=== PATIENT | male | born 1975 | race Caucasian/White ===

== ENCOUNTER 2022-08-25 12:28 | Inpatient (IN) | payer OTHER ==
[~2022-08-25] VITALS: Ht 180.3 cm; Wt 95.7 kg
[2022-08-25 12:30] VITALS: BP_SYST 118
[2022-08-25] MEDS ORDERED: MORPHINE 4 MG INJ. 4 MG/ML VIAL IVP ONE (12:45)
[2022-08-25] MEDS ORDERED: ONDANSETRON HCL 4 MG/2 ML VIAL IVP ONE ×2 (12:45→20:30)
[2022-08-25] MEDS ORDERED: NACL 0.9% 1,000 ML IV ONE (12:45)
[2022-08-25 13:12] LABS: EOSINOPHILS # (AUTO) 0.2 K/uL (0.0-0.4); HEMATOCRIT 36.4 % (36-54); HEMOGLOBIN 12.3 g/dL (14.0-18.0); LYMPHOCYTES % (AUTO) 20.1 % (20.5-51.5); MEAN CORPUSCULAR HEMOGLOBIN 31 pg (27-31); MEAN CORPUSCULAR HGB CONC 34 % (32-36); MEAN CORPUSCULAR VOLUME 90 fL (79.0-98.0); MONOCYTES # (AUTO) 0.4 K/uL (0.0-1.0); MONOCYTES % (AUTO) 7.9 % (1.7-9.3); NEUTROPHILS # (AUTO) 3.5 K/uL (1.8-7.7); PLATELET COUNT (AUTO) 86 K/uL (130-430); RED BLOOD CELL COUNT(AUTO) 4.04 MIL/uL (4.2-6.2); RED CELL DISTRIBUTION WIDTH 14.3 % (9.0-15.0); WHITE BLOOD COUNT (AUTO) 5.1 K/uL (4.8-10.8)
[2022-08-25 13:13] LABS: BILIRUBIN,URINE NEGATIVE (NEGATIVE); COLOR,URINE YELLOW (YELLOW); GLUCOSE,URINE 3+ (NEGATIVE); KETONES,URINE NEGATIVE (NEGATIVE); LEUKOCYTE ESTERASE ,URINE NEGATIVE (NEGATIVE); NITRITE, URINE NEGATIVE (NEGATIVE); PROTEIN URINE NEGATIVE (NEGATIVE); UROBILINOGEN,URINE 0.2 (0.2-1.0)
[2022-08-25 13:14] LABS: BLOOD, URINE TRACE (NEGATIVE); CLARITY/URINE SLIGHTLY HAZY (CLEAR)
[2022-08-25 13:20] LABS: ALBUMIN 3.4 g/dL (3.4-4.8); CALCIUM 8.6 mg/dL (8.4-11.0); CREATININE 2.13 mg/dL (0.55-1.30); TOTAL BILIRUBIN 0.4 mg/dL (0.0-1.0)
[2022-08-25 13:21] LABS: BACTERIA,URINE FEW /HPF (None Seen); RBC,URINE 0-3 /HPF (0-3); WBC,URINE 0-3 /HPF (0-3); YEAST,URINE Moderate /HPF (None Seen)
[2022-08-25] MEDS ORDERED: INSULIN REGULAR, HUMAN 10 UNITS/0.1 ML, 3 ML VIAL IVP ONE (17:00)
[2022-08-25] MEDS ORDERED: FLUCONAZOLE 200 mg/ NS 100 ML IV ONE (17:00)
[2022-08-25] MEDS ORDERED: DIPHENHYDRAMINE INJ 50 MG/ML VIAL IVP ONE (17:30)
[2022-08-25] MEDS ORDERED: METOCLOPRAMIDE HCL 10 MG/2 ML VIAL IVP ONE (17:30)
[2022-08-25] MEDS ORDERED: KETOROLAC TROMETHAMINE 15 MG VIAL IVP ONE (17:30)
[2022-08-25] MEDS ORDERED: NEU300 PO (18:06)
[2022-08-25] MEDS ORDERED: LORA-258 PO (18:06)
[2022-08-25] MEDS ORDERED: INSU100V SUBCUT (18:06)
[2022-08-25] MEDS ORDERED: LISI20TA30 PO (18:06)
[2022-08-25] MEDS ORDERED: PROP10TA10 PO (18:06)
[2022-08-25] MEDS ORDERED: QUET25TA36 PO (18:06)
[2022-08-25] MEDS ORDERED: LIP20 PO (18:06)
[2022-08-25] MEDS ORDERED: FLUO40CA49 PO (18:06)
[2022-08-25] MEDS ORDERED: MORPHINE 2 MG/ML INJ. SYRINGE IVP ONE (20:30)
[2022-08-25] MEDS: 0.45% NACL 1,000 ML IV SCH (20:44)
[2022-08-25 21:14] VITALS: BP_SYST 111
[2022-08-25] MEDS: INSULIN LISPRO SLIDING SCALE 100 UNITS/ML, 3 ML VIAL (humaLOG) SUBCUT SCH (23:30)
[2022-08-26] MEDS ORDERED: ONDANSETRON HCL 4 MG/2 ML VIAL IVP PRN ×2 (00:15→12:45)
[2022-08-26 00:30] VITALS: BP_SYST 93
[2022-08-26] MEDS: LORazepam 1 MG TABLET PO SCH ×3 (00:35→22:40)
[2022-08-26] MEDS: MORPHINE 2 MG/ML INJ. SYRINGE IVP PRN ×4 (00:47→20:15)
[2022-08-26] MEDS: INSULIN LISPRO SLIDING SCALE 100 UNITS/ML, 3 ML VIAL (humaLOG) SUBCUT SCH ×4 (06:20→22:34)
[2022-08-26 06:21] VITALS: BP_SYST 111
[2022-08-26] MEDS ORDERED: GLUCOSE (DEXTROSE) ORAL GEL -Adults PO PRN (06:30)
[2022-08-26] MEDS ORDERED: DEXTROSE 50%-WATER 50 ML DISP.SYRIN IVP PRN (06:30)
[2022-08-26] MEDS ORDERED: D5W 1,000 ML IV PRN (06:30)
[2022-08-26] MEDS: 0.45% NACL 1,000 ML IV SCH ×2 (10:32→22:40)
[2022-08-26] MEDS ORDERED: HYDROcodone/ACETAMIN 5-325 MG TAB (NORCO/ VICODIN) PO PRN (12:45)
[2022-08-26] MEDS ORDERED: LORazepam 2 MG/ML VIAL IVP PRN (12:45)
[2022-08-26] MEDS ORDERED: NALOXONE HCL 0.4 MG/ML AMP (NARCAN) IVP PRN ×2 (12:45)
[2022-08-26] MEDS ORDERED: ACETAMINOPHEN 325 MG TABLET PO PRN ×2 (12:45→13:00)
[2022-08-26] MEDS ORDERED: FLUoxetine HCL 20 MG CAPSULE (PROzac) PO ONE (13:15)
[2022-08-26] MEDS: GABAPENTIN 300 MG CAPSULE PO SCH ×2 (14:59→22:22)
[2022-08-26] MEDS: HYDROcodone/ACETAMIN 10-325 MG TAB PO PRN (15:29)
[2022-08-26 20:11] VITALS: BP_SYST 120
[2022-08-26] MEDS: PROPRANOLOL HCL 10 MG TABLET (INDERAL) PO SCH (22:25)
[2022-08-26] MEDS: lisinopriL 20 MG TABLET PO SCH (22:26)
[2022-08-26] MEDS: QUEtiapine FUMARATE 25 MG TABLET PO SCH (22:26)
[2022-08-26] MEDS: ATORVASTATIN 20 MG TABLET PO SCH (22:38)
[2022-08-27] MEDS: HYDROcodone/ACETAMIN 10-325 MG TAB PO PRN ×3 (00:08→23:12)
[2022-08-27 01:05] VITALS: BP_SYST 115
[2022-08-27 04:56] VITALS: BP_SYST 114
[2022-08-27] MEDS: MORPHINE 2 MG/ML INJ. SYRINGE IVP PRN ×3 (05:11→19:43)
[2022-08-27] MEDS: INSULIN LISPRO SLIDING SCALE 100 UNITS/ML, 3 ML VIAL (humaLOG) SUBCUT SCH ×4 (06:44→23:16)
[2022-08-27 07:27] LABS: EOSINOPHILS # (AUTO) 0.2 K/uL (0.0-0.4); EOSINOPHILS % (AUTO) 3.6 % (0.0-4.0); HEMATOCRIT 35.2 % (36-54); LYMPHOCYTES # (AUTO) 1.3 K/uL (1.0-5.5); LYMPHOCYTES % (AUTO) 32.2 % (20.5-51.5); MEAN CORPUSCULAR HEMOGLOBIN 31 pg (27-31); MEAN CORPUSCULAR HGB CONC 34 % (32-36); MEAN CORPUSCULAR VOLUME 90 fL (79.0-98.0); MONOCYTES # (AUTO) 0.4 K/uL (0.0-1.0); MONOCYTES % (AUTO) 9.9 % (1.7-9.3); NEUTROPHILS # (AUTO) 2.2 K/uL (1.8-7.7); NEUTROPHILS % (AUTO) 53.3 % (40.0-70.0); PLATELET COUNT (AUTO) 59 K/uL (130-430); RED CELL DISTRIBUTION WIDTH 14.2 % (9.0-15.0); WHITE BLOOD COUNT (AUTO) 4.2 K/uL (4.8-10.8)
[2022-08-27 08:00] VITALS: BP_SYST 109
[2022-08-27 08:06] LABS: ALBUMIN 3.1 g/dL (3.4-4.8); CALCIUM 8.5 mg/dL (8.4-11.0); CREATININE 1.6 mg/dL (0.55-1.30); PHOSPHORUS 3.3 mg/dL (2.7-4.5); TOTAL BILIRUBIN 0.7 mg/dL (0.0-1.0)
[2022-08-27] MEDS: QUEtiapine FUMARATE 25 MG TABLET PO SCH ×2 (09:12→21:54)
[2022-08-27] MEDS: FLUoxetine HCL 20 MG CAPSULE (PROzac) PO SCH (09:12)
[2022-08-27] MEDS: PROPRANOLOL HCL 10 MG TABLET (INDERAL) PO SCH ×2 (09:21→21:54)
[2022-08-27] MEDS: GABAPENTIN 300 MG CAPSULE PO SCH ×3 (09:24→21:54)
[2022-08-27] MEDS: LORazepam 1 MG TABLET PO SCH ×2 (09:24→21:53)
[2022-08-27] MEDS: 0.45% NACL 1,000 ML IV SCH ×2 (09:26→22:02)
[2022-08-27 12:00] VITALS: BP_SYST 108
[2022-08-27] MEDS ORDERED: FLUCONAZOLE 200 MG TABLET (DIFLUCAN) PO ONE (14:00)
[2022-08-27 16:00] VITALS: BP_SYST 116
[2022-08-27 20:00] VITALS: BP_SYST 103
[2022-08-27] MEDS: ATORVASTATIN 20 MG TABLET PO SCH (21:54)
[2022-08-27] MEDS: lisinopriL 20 MG TABLET PO SCH (21:55)
[2022-08-28 03:26] VITALS: BP_SYST 89
[2022-08-28] MEDS: HYDROcodone/ACETAMIN 10-325 MG TAB PO PRN (03:26)
[2022-08-28 06:18] LABS: BASOPHILS # (AUTO) 0.1 K/uL (0.0-0.2); BASOPHILS % (AUTO) 1.3 % (0.0-2.0); EOSINOPHILS # (AUTO) 0.3 K/uL (0.0-0.4); EOSINOPHILS % (AUTO) 3.6 % (0.0-4.0); HEMATOCRIT 35.2 % (36-54); HEMOGLOBIN 11.8 g/dL (14.0-18.0); LYMPHOCYTES # (AUTO) 2.7 K/uL (1.0-5.5); LYMPHOCYTES % (AUTO) 34.2 % (20.5-51.5); MEAN CORPUSCULAR HEMOGLOBIN 31 pg (27-31); MEAN CORPUSCULAR HGB CONC 34 % (32-36); MEAN CORPUSCULAR VOLUME 91 fL (79.0-98.0); MONOCYTES # (AUTO) 0.7 K/uL (0.0-1.0); MONOCYTES % (AUTO) 9.1 % (1.7-9.3); NEUTROPHILS # (AUTO) 4.1 K/uL (1.8-7.7); NEUTROPHILS % (AUTO) 51.8 % (40.0-70.0); PLATELET COUNT (AUTO) 112 K/uL (130-430); RED BLOOD CELL COUNT(AUTO) 3.85 MIL/uL (4.2-6.2); RED CELL DISTRIBUTION WIDTH 14.5 % (9.0-15.0); WHITE BLOOD COUNT (AUTO) 7.9 K/uL (4.8-10.8)
[2022-08-28] MEDS: INSULIN LISPRO SLIDING SCALE 100 UNITS/ML, 3 ML VIAL (humaLOG) SUBCUT SCH ×2 (06:21→11:08)
[2022-08-28 06:48] LABS: CALCIUM 8.7 mg/dL (8.4-11.0); CREATININE 1.56 mg/dL (0.55-1.30)
[2022-08-28 07:44] VITALS: BP_SYST 92
[2022-08-28] MEDS: LORazepam 1 MG TABLET PO SCH (08:26)
[2022-08-28] MEDS: FLUoxetine HCL 20 MG CAPSULE (PROzac) PO SCH (08:26)
[2022-08-28] MEDS: GABAPENTIN 300 MG CAPSULE PO SCH ×2 (08:26→14:39)
[2022-08-28] MEDS: QUEtiapine FUMARATE 25 MG TABLET PO SCH (08:26)
[2022-08-28] MEDS: PROPRANOLOL HCL 10 MG TABLET (INDERAL) PO SCH (08:45)
[2022-08-28] MEDS ORDERED: FLUCONAZOLE 200 MG TABLET (DIFLUCAN) PO SCH (09:00)
[2022-08-28] MEDS: MORPHINE 2 MG/ML INJ. SYRINGE IVP PRN ×2 (10:31→14:40)
[2022-08-28] MEDS: 0.45% NACL 1,000 ML IV SCH (10:35)
[2022-08-28 12:00] VITALS: BP_SYST 90
[2022-08-28] MEDS ORDERED: FLUC200T PO (13:57)
[2022-08-28 14:56] VITALS: BP_SYST 92
== END 2022-08-28 15:50 | disposition home or self-care (01) | DRG 638 ==
LOC: SED 12:28 → SMU 19:30
PROVIDERS: ADMIT Internal Medicine; ATTEND Internal Medicine
DX: E11.65 Type 2 diabetes mellitus with hyperglycemia (principal); E87.1 Hypo-osmolality and hyponatremia; N17.9 Acute kidney failure, unspecified; D69.6 Thrombocytopenia, unspecified; E11.21 Type 2 diabetes mellitus with diabetic nephropathy; B37.9 Candidiasis, unspecified; N28.1 Cyst of kidney, acquired; Z20.822 Contact with and (suspected) exposure to COVID-19; Z90.49 Acquired absence of other specified parts of digestive tract
CPT/HCPCS: 36415; 71045; 76376; 76770; 80048; 80053; 81000; 82962; 83690; 83735; 84100; 85025; 87086; 93005; 96361; 96374; 96375; 99285; J1200; J1450; J1815; J1885; J2270; J2405; J2765